=== PATIENT | female | born 1955 | race Two or more races ===

== ENCOUNTER → 2023-07-15 | Emergency (ER) | payer OTHER ==
[~2023-07-15] VITALS: Ht 165.1 cm; Wt 70.3 kg
[~2023-07-15] MED LIST: MONTELUKAST SOD10 MG PO
== END | disposition home or self-care (01) ==
LOC: ER 19:42
DX: S00.93XA Contusion of unspecified part of head, initial encounter (principal); W18.30XA Fall on same level, unspecified, initial encounter; Y93.9 Activity, unspecified; Y92.9 Unspecified place or not applicable; Y99.9 Unspecified external cause status